=== PATIENT | male | born 2000 | race Two or more races ===

== ENCOUNTER → 2023-07-24 09:19 | Outpatient (BNVA) | payer SELFPAY | PROVIDERS: Visit Provider Physician Assistant Medical ==

== ENCOUNTER 2023-11-01 10:33 | Emergency (ER) | payer OTHER, SELFPAY ==
--- NOTE | 2023-11-01 | ECG_ITS ---
Test Reason : ABD PAIN Blood Pressure : / mmHG Vent. Rate : 103 BPM Atrial Rate : 103 BPM P-R Int : 140 ms QRS Dur : 080 ms QT Int : 308 ms P-R-T Axes : 041 011 018 degrees QTc Int : 403 ms Sinus tachycardia Nonspecific T wave abnormality Abnormal ECG No previous ECGs available Referred By: Generic ED Physician Electronically Signed By:Omero Simon
[2023-11-01 10:59] VITALS: BP 133/79; PULSE 102; RESP 18; TEMP 37.2; O2SAT 97
--- NOTE | 2023-11-01 11:21 | ED.GENADULT ---
HPI - General Adult General Chief complaint: General Medical Stated complaint: bodyaches/dark urine Time Seen by Provider: 11/01/23 11:21 Source: patient, family and RN notes reviewed Mode of arrival: ambulatory Limitations: no limitations History of Present Illness ED Provider: Tonia Grossman PA-C HPI narrative: This is a 23-year-old Singaporean-speaking male who presents emergency department with multiple complaints. Patient reports that has a variety of symptoms over the last week. He states that he has had sore throat, intermittent subjective fevers, fatigue, body aches, headaches, chills, nausea, low back pain, and and 1 episode of vomiting yesterday vomiting. He has been to [facility] and [facility] for these symptoms was discharged without any results of his workup. Patient reports that he has had decreased appetite over the last several days secondary to his pain and symptoms. He denies any sick contacts. He reports that he does not spend any time outdoors. No recent tick bites. He does not have any animals. He does report he had walked through a field several weeks ago however denies that this was tall grass, and states that it was a quick walk through field. No chest pain or shortness of breath. No rashes. No other complaints or concerns at this time. MD complaint: Multiple complaints Onset (ago): week(s) Radiation: non-radiation Severity: moderate Exacerbating factors: none Associated symptoms: denies other symptoms Treatments prior to arrival: none Related Data Previous Rx's ?Medication ?Instructions ?Recorded doxycycline hyclate 100 mg capsule 100 mg PO BID #14 caps 11/01/23 Allergies Allergy/AdvReac Type Severity Reaction Status Date / Time No Known Allergies Allergy Verified 11/01/23 11:09 Review of Systems Review of Systems: Yes all other systems are reviewed and are negative Constitutional: Constitutional: Reports as per [facility] Social History Social History Advance Directives: No Advance Directives Information Provided: Yes Do you have a plan to hurt others: No Plan Physical Exam ED Vital Signs: Vital Signs - 24 hr 11/01/23 10:59 11/01/23 12:29 11/01/23 14:39 Temperature 98.9 F 98.3 F 98.1 F Pulse Rate 102 H 94 96 Respiratory Rate 18 16 16 Blood Pressure 133/79 121/76 115/61 Pulse Oximetry 97 99 99 Oxygen Delivery Method Room Air Room Air Room Air 11/01/23 17:31 Temperature 100.1 F Pulse Rate 100 Respiratory Rate 16 Blood Pressure 128/86 Pulse Oximetry 99 Oxygen Delivery Method Room Air BMI result Body Mass Index 30.0 Const General: cooperative, comfortable and no acute distress Orientation/consciousness: patient oriented x3 Limitations: no limitations [facility] Head: Yes normal to inspection, Yes normocephalic and Yes atraumatic Ears: hearing grossly normal bilaterally General nose exam: Normal external nose present Face and sinus: Yes normal facial exam Mouth: Normal oral and palatal mucosa present, oropharynx normal and moist mucous membranes Throat: Yes posterior oropharynx normal Eyes General: appearance normal, both eyes and all related structures Eyelids: Yes eyelids normal Conjunctivae: conjunctivae normal Sclerae: sclerae normal Pupils: Equal, round and reactive pupils present EOM: EOMs intact bilaterally Neck Neck: Yes normal visual inspection, Yes full ROM and Yes no lymphadenopathy Lymphatic: no lymphadenopathy noted Chest Chest palpation & inspection: normal inspection of the chest Resp Effort & Inspection: normal respiratory effort and able to speak in complete sentences Auscultation: clear to auscultation bilaterally, no crackles, no rales, no rhonchi and no wheezes Cardio Rate: regular rate Rhythm: regular rhythm Heart sounds: S1 normal heart sound present and S2 normal heart sound present GI Other: Abdomen is soft, nontender Inspection: Yes normal to inspection Skin General skin exam: no rashes or lesions noted Trauma: no lacerations or abrasions Wounds: no wounds Neuro General: patient oriented x3 and moves all extremities Cranial nerves: Yes Equal, round and reactive pupils present Extrem General: Yes normal to inspection Right upper extremity: normal to inspection Left upper extremity: normal to inspection Right lower extremity: normal to inspection Left lower extremity: normal to inspection Course Reevaluation(s) Reevaluation #1: [facility] [facility] screen is negative. Patient has leukopenia with left shift including atypical lymphocytes, with low platelets, elevated liver enzymes, and elevated alk phos. I discussed this workup with my attending physician, Dr. López. Recommends calling down to the laboratory asking if the blood smear showed any evidence of babesia and to inquire in regards to risk factors for tick-borne illnesses. Will draw for tick-borne illnesses. Called down to the lab, they report no significant evidence of Babesia on the smear will obtain tick-borne panel for further evaluation. Patient remains to be comfortable, resting in the room, under no distress. Time: 14:57 Reevaluation #2: He continues to be comfortable, he has no factors that would lead him to be more prone to tick-borne illnesses. He states that he takes care of his son aldo, does not spend time outdoors. He does not have any animals. I discussed this again with my attending physician, he recommends reaching out to Dr. Guillen for input. Message sent to specialist Time: 15:45 Reevaluation #3: I discussed case with Dr. Guillen, who recommends having repeat labs performed in 1 week. I discussed overall workup with patient, he has a primary care physician who he can follow-up with. At this point, we are treating for ehrlichiosis with 10 day course of doxycycline. Discussed strict return precautions. He is eating and drinking and well-appearing. At this time I feel comfortable with discharge with the agreement that he will return with any new or worsening symptoms. He understands and agrees with plan. Patient stable for discharge. Medical Decision Making Medical Decision Making [facility] Narrative: This is a 23-year-old male who presents emergency department with multiple complaints. On arrival, vital signs within normal limits. He is nontoxic appearing. Abdomen is soft and nontender. He has had various symptoms over the course of this last week and has been seen at [facility] and [facility] for his symptoms without any answers. Given range of symptoms, will obtain labs, mono screen. Differential diagnoses include mono, tick-borne illness, viral syndrome. He is well-appearing. Plan: Labs, mono, viral swabs Differential Diagnosis Differential Diagnoses: The differential diagnosis associated with the presentation includes See above Admission/Observation Consideration of admission/observation: Escalation of care including admission/observation considered Consult Healthcare Provider Management of the patient was discussed with: Varnish Maker Helper Dr. Guillen Lab Data [facility] Lab Attestation statement: I reviewed the patient's lab results. Patient has leukopenia at 4.4, with low neutrophils, band neutrophils at 6%, elevated lymphocytes and atypical lymphocytes. He also has slight decrease in platelet estimate, with smudge cells, and polychromasia he has elevated AST and ALT as well as alk phos 11/01/23 11:21 11/01/23 11:21 Labs: Lab Results 11/01/23 11/01/23 11/01/23 Range/Units 11:21 11:44 13:30 WBC 4.4 L (4.8-10.8) X10*3/uL RBC 4.94 (4.60-5.80) X10*6/uL Hgb 14.1 (14.0-18.0) g/dl Hct 40.7 L (42.0-52.0) % MCV 82.4 (80.0-98.0) fL MCH 28.5 (27.0-33.0) pg MCHC 34.6 (31.0-36.0) g/dl RDW 12.6 (11.0-16.0) % Plt Count 151 L (160-400) X10*3/uL MPV 9.9 (9.4-12.4) fL Immature Gran % (Auto) Cancelled Neut % (Auto) Cancelled Lymph % (Auto) Cancelled [place] % (Auto) Cancelled Eos % (Auto) Cancelled Baso % (Auto) Cancelled Lymph # (Auto) Cancelled [place] # (Auto) Cancelled Eos # (Auto) Cancelled Baso # (Auto) Cancelled Abs Immat Gran (auto) Cancelled Absolute Neuts (auto) Cancelled Absolute Nucleated RBC 0.000 (0.0-0.012) X10*3/uL Nucleated RBC % (auto) 0.0 (0.0-0.2) /100WBC Neutrophils % (Manual) 15 L (45-73) % Band Neutrophils % 6 H (3-5) % Lymphocytes % (Manual) 62 H (20-40) % Atypical Lymphs % (Man) 10 H (0-6) % Monocytes % (Manual) 6 (2-11) % Basophils % (Manual) 1 (0-2) % Abs Neuts (Manual) 0.9 L (2.0-8.3) X10*3/uL Lymphocytes # (Manual) 2.7 (1.2-4.9) X10*3/uL Atyp Lymphs # (Manual) 0.4 x10*3/uL Monocytes # (Manual) 0.3 (0.1-1.2) X10*3/uL Smudge Cells PRESENT Platelet Estimate SLIGHTLY DECREASED (NORMAL) Plt Morphology Comment NORMAL RBC Morphology NOTED Polychromasia 1+ (0-2) /OIF Sodium 136 (135-145) mmol/L Potassium 4.3 (3.3-5.1) mmol/L Chloride 104 (96-108) mmol/L Carbon Dioxide 25 (22-29) mmol/L Anion Gap 11 L (12-20) BUN 9 (9-16) mg/dL Creatinine 1.00 (0.5-1.4) mg/dL Estim Creat Clear Calc 139.1 Estimated GFR > 60 Random Glucose 94 (60-115) mg/dL Calcium 8.8 (8.4-10.2) mg/dL Total Bilirubin 0.8 (0.0-1.0) mg/dL Direct Bilirubin 0.4 (0.0-0.5) mg/dL AST 143 H (5-37) U/L ALT 268 H (0-40) U/L Alkaline Phosphatase 139 H (39-117) U/L Total Protein 7.3 (6.5-8.0) g/dL Albumin 4.0 (3.5-5.0) g/dL Lipase 30 (8-78) U/L Urine Color Dark Yellow Urine Appearance Clear Urine pH 5.5 (5.0-9.0) Ur Specific [place] 1.020 (1.005-1.025) Urine Protein Trace (Neg-Trace) mg/dL Urine Glucose (UA) Negative (Negative) mg/dL Urine Ketones Trace (Negative) mg/dL Urine Blood Negative (Negative) Urine Nitrite Negative (Negative) Ur Leukocyte Esterase Negative (Negative) Urine RBC 0-2 (0-2) /HPF Urine WBC 0-5 (0-5) /HPF Ur Squamous Epith Cells 0-2 (0-2) /HPF Urine Bacteria None Seen (None Seen) Hyaline Casts 0-2 (0-2) /LPF COVID-19 (VU) Negative (Negative) COVID-19 Clin Com See Note Monoscreen Negative (Negative) Influenza Type A (SIOBHAN) Negative (Negative) Influenza Type B (SIOBHAN) Negative (Negative) Influenza A & B Note See Note S. pyogenes GrpA SIOBHAN (Negative) 11/01/23 Range/Units 14:36 WBC (4.8-10.8) X10*3/uL RBC (4.60-5.80) X10*6/uL Hgb (14.0-18.0) g/dl Hct (42.0-52.0) % MCV (80.0-98.0) fL MCH (27.0-33.0) pg MCHC (31.0-36.0) g/dl RDW (11.0-16.0) % Plt Count (160-400) X10*3/uL MPV (9.4-12.4) fL Immature Gran % (Auto) Neut % (Auto) Lymph % (Auto) [place] % (Auto) Eos % (Auto) Baso % (Auto) Lymph # (Auto) [place] # (Auto) Eos # (Auto) Baso # (Auto) Abs Immat Gran (auto) Absolute Neuts (auto) Absolute Nucleated RBC (0.0-0.012) X10*3/uL Nucleated RBC % (auto) (0.0-0.2) /100WBC Neutrophils % (Manual) (45-73) % Band Neutrophils % (3-5) % Lymphocytes % (Manual) (20-40) % Atypical Lymphs % (Man) (0-6) % Monocytes % (Manual) (2-11) % Basophils % (Manual) (0-2) % Abs Neuts (Manual) (2.0-8.3) X10*3/uL Lymphocytes # (Manual) (1.2-4.9) X10*3/uL Atyp Lymphs # (Manual) x10*3/uL Monocytes # (Manual) (0.1-1.2) X10*3/uL Smudge Cells Platelet Estimate (NORMAL) Plt Morphology Comment RBC Morphology Polychromasia /OIF Sodium (135-145) mmol/L Potassium (3.3-5.1) mmol/L Chloride (96-108) mmol/L Carbon Dioxide (22-29) mmol/L Anion Gap (12-20) BUN (9-16) mg/dL Creatinine (0.5-1.4) mg/dL Estim Creat Clear Calc Estimated GFR Random Glucose (60-115) mg/dL Calcium (8.4-10.2) mg/dL Total Bilirubin (0.0-1.0) mg/dL Direct Bilirubin (0.0-0.5) mg/dL AST (5-37) U/L ALT (0-40) U/L Alkaline Phosphatase (39-117) U/L Total Protein (6.5-8.0) g/dL Albumin (3.5-5.0) g/dL Lipase (8-78) U/L Urine Color Urine Appearance Urine pH (5.0-9.0) Ur Specific [place] (1.005-1.025) Urine Protein (Neg-Trace) mg/dL Urine Glucose (UA) (Negative) mg/dL Urine Ketones (Negative) mg/dL Urine Blood (Negative) Urine Nitrite (Negative) Ur Leukocyte Esterase (Negative) Urine RBC (0-2) /HPF Urine WBC (0-5) /HPF Ur Squamous Epith Cells (0-2) /HPF Urine Bacteria (None Seen) Hyaline Casts (0-2) /LPF COVID-19 (VU) (Negative) COVID-19 Clin Com Monoscreen (Negative) Influenza Type A (SIOBHAN) (Negative) Influenza Type B (SIOBHAN) (Negative) Influenza A & B Note S. pyogenes GrpA SIOBHAN Negative (Negative) Radiology Impression Discussion of test interpretation with radiology: I have reviewed the radiologist's reading. External Record Review External record reviewed: Inpatient record, Office record, Outpatient record, Prior outpatient labs, Prior outpatient radiology, Primary care record and Outside ED record Discharge Plan Discharge Clinical Impression: Viral illness Patient Disposition: Home, Self-Care Instructions: Viral Syndrome (ED) Additional Instructions: You were seen in the emergency department today. You had abnormal blood work, please have this repeated in 1 week. Call your primary care physician on friday. You may have a virus from a tick that is causing you to have the symptoms. Please take prescribed antibiotic as directed, finish the entire course even if your feeling better. Please be advised that this can cause stomach upset, you may take Zofran as needed for nausea. If any new or worsening symptoms occur including but not limited to chest pain, dizziness, severe abdominal pain, please immediately seek emergent care. Your lab testing for tick-borne illnesses does take several days, we will not have the results for several days. We will call you if these are positive. Prescriptions: New doxycycline hyclate 100 mg capsule 100 mg PO BID Qty: 14 0RF Interventions: ED Discharge Assessment Last Done: 11/01/23 17:31 Discharge Date/Time: 11/01/23 17:32 Print Language: Singaporean
[2023-11-01 11:38] LABS: Hematocrit 40.7 % (42.0-52.0); Hemoglobin 14.1 g/dl (14.0-18.0); Mean Corpuscular HGB Conc 34.6 g/dl (31.0-36.0); Mean Corpuscular Hemoglobin 28.5 pg (27.0-33.0); Mean Corpuscular Volume 82.4 fL (80.0-98.0); Mean Platelet Volume 9.9 fL (9.4-12.4); Platelet Count 151 X10*3/uL (160-400); Red Blood Count 4.94 X10*6/uL (4.60-5.80); Red Cell Distribution Width 12.6 % (11.0-16.0); White Blood Count 4.4 X10*3/uL (4.8-10.8)
[2023-11-01 11:43] LABS: Alanine Aminotransferase 268 U/L (0-40); Alkaline Phosphatase 139 U/L (39-117); Anion Gap 11 (12-20); Aspartate Amino Transferase 143 U/L (5-37); Bilirubin Direct 0.4 mg/dL (0.0-0.5); Bilirubin Total 0.8 mg/dL (0.0-1.0); Blood Urea Nitrogen 9 mg/dL (9-16); Calcium 8.8 mg/dL (8.4-10.2); Carbon Dioxide 25 mmol/L (22-29); Chloride 104 mmol/L (96-108); Creatinine Clr Calc Pharmacy 139.1; Estimated Glomerular Filt Rate > 60; Glucose Random 94 mg/dL (60-115); Lipase 30 U/L (8-78); Potassium 4.3 mmol/L (3.3-5.1); Sodium 136 mmol/L (135-145); Total Protein 7.3 g/dL (6.5-8.0)
[2023-11-01 11:49] LABS: Appearance Urine Clear; Color Urine Dark Yellow; Glucose Urine UA Negative (Negative); Leukocyte Esterase Urine Negative (Negative); Nitrite Urine Negative (Negative); PH 5.5 (5.0-9.0); Urine Blood Negative (Negative); Urine Ketones Trace mg/dL (Negative); Urine Protein Trace mg/dL (Neg-Trace)
[2023-11-01 11:54] LABS: Bacteria Urine None Seen (None Seen); Hyaline Casts Urine 0-2 /LPF (0-2); RBC Urine 0-2 /HPF (0-2); Squamous Epithelial Cell Urine 0-2 /HPF (0-2); WBC Urine 0-5 /HPF (0-5)
[2023-11-01 12:17] LABS: COVID-19 Test Negative (Negative); IDNOW Serial# 08D9AD1C; IDNOW Serial# 152EDE1D; Influenza A Negative (Negative); Influenza B2 Negative (Negative)
[2023-11-01 12:29] VITALS: BP 121/76; PULSE 94; RESP 16; TEMP 36.8; O2SAT 99
[2023-11-01 12:41] LABS: Atypical Lymph Absolute Manual 0.4 x10*3/uL; Atypical Lymphs Percent Manual 10 % (0-6); Band Neutrophils Percent 6 % (3-5); Basophils Percent Manual 1 % (0-2); Lymphocytes Absolute Manual 2.7 X10*3/uL (1.2-4.9); Lymphocytes Percent Manual 62 % (20-40); Monocytes Absolute Manual 0.3 X10*3/uL (0.1-1.2); Monocytes Percent Manual 6 % (2-11); Neutrophils Absolute Manual 0.9 X10*3/uL (2.0-8.3); Neutrophils Percent Manual 15 % (45-73)
[2023-11-01 12:43] LABS: Platelet Estimate SLIGHTLY DECREASED (NORMAL); Platelet Morphology Comment NORMAL; Polychromasia 1+ (0-2) /OIF; RBC Morphology NOTED; Smudge Cells PRESENT
[2023-11-01 14:04] LABS: Monotest Negative (Negative)
[2023-11-01 14:39] VITALS: BP 115/61; PULSE 96; RESP 16; TEMP 36.7; O2SAT 99
[2023-11-01 15:18] LABS: IDNOW Serial# 58CA691E; Strep A Nucleic Acid Negative (Negative)
[2023-11-01 17:31] VITALS: BP 128/86; PULSE 100; RESP 16; TEMP 37.8; O2SAT 99
[2023-11-03 22:44] LABS: Lyme Abs Screen <0.90 index
[2023-11-10 09:57] LABS: A. Phagocytophilum Ab IgG <1:64 (<1:64); A. Phagocytophilum Ab IgM <1:20 (<1:20); E. Chaffeensis Ab IgG <1:64 (<1:64); E. Chaffeensis Ab IgM <1:20 (<1:20)
[2023-11-12 05:13] LABS: Babesia IgG <1:64 titer (<1:64)
== END 2023-11-01 17:32 | disposition home or self-care (01) ==
PROVIDERS: Physician Assistant Medical; Emergency Provider Emergency Medicine Emergency Medical Services
DX: B34.9 Viral infection, unspecified (principal); J02.9 Acute pharyngitis, unspecified; R51.9 Headache, unspecified; Z03.818 Encounter for observation for suspected exposure to other biological agents ruled out
CPT/HCPCS: 36415; 80048; 80076; 81001; 83690; 85007; 85025; 85027; 86308; 86617; 86618; 86666; 86753; 87502; 87635; 87651; 93005; 99284

== ENCOUNTER → 2023-11-01 11:24 | Outpatient (BNV) | payer OTHER, SELFPAY | PROVIDERS: Emergency Provider Emergency Medicine Emergency Medical Services; Visit Provider Internal Medicine Cardiovascular Disease | DX: R00.0 Tachycardia, unspecified (principal); R94.31 Abnormal electrocardiogram [ECG] [EKG]; R10.9 Unspecified abdominal pain | CPT/HCPCS: 93010 ==

== ENCOUNTER 2023-11-03 20:04 | Inpatient (IN) | payer OTHER, SELFPAY ==
--- NOTE | ~2023-11-03 | US_ITS ---
EXAMINATION: US ABDOMEN LIMITED CLINICAL INFORMATION: Abnormal LFTs. Epigastric and right flank pain, vomiting with eating. COMPARISON: None available. TECHNIQUE: Real-time imaging of the right upper quadrant abdominal viscera. FINDINGS: PANCREAS: Not well seen due to shadowing from overlying bowel gas. LIVER: The liver is normal in size. The liver contour is normal. Parenchymal echogenicity is normal. No focal hepatic lesion. There is no intrahepatic biliary duct dilatation seen. GALLBLADDER: Negative Manrique's sign. The gallbladder is physiologically distended without evidence of stones, sludge, polyps, wall thickening or pericholecystic fluid. COMMON BILE DUCT: Normal in caliber measuring 0.2 cm in diameter. RIGHT KIDNEY: No hydronephrosis. No renal calculi or focal parenchymal lesions. The kidney measures 10.2 cm in maximum dimension. FREE FLUID: None. US/US abdomen limited IMPRESSION: No acute sonographic abnormalities to explain the patient's symptoms.
--- NOTE | ~2023-11-03 | CT_ITS ---
EXAMINATION: CT ABDOMEN AND PELVIS WITH CONTRAST CLINICAL INFORMATION: Right flank pain. COMPARISON: None available. TECHNIQUE: Multidetector volumetric images were obtained from the superior aspect of the liver through the pubic symphysis following administration 85 mL of Omnipaque 350 intravenous contrast. Sagittal and coronal reformatted images were obtained on the technologist's workstation. Oral contrast: No This CT examination was performed using dose optimization techniques as appropriate, variously including the following: *Automated exposure control *Adjustment of mA and/or kV according to patient size (this includes techniques or standardized protocols for targeted exams where dose is matched to indication/reason for exam; i.e. extremities or head) *Use of iterative reconstruction technique DLP: 710 mGy-cm FINDINGS: LUNG BASES: The visualized lung bases are unremarkable. LIVER, GALLBLADDER, AND BILIARY TREE: A small hepatic calcification is noted near the dome of the right lobe of the liver. There is no intrahepatic biliary duct dilatation. The gallbladder is unremarkable with no evidence of radiopaque gallstones, gallbladder wall thickening, or obvious pericholecystic inflammatory changes. PANCREAS: Unremarkable. SPLEEN: Spleen is enlarged measuring up to 16 cm. ADRENAL GLANDS: Unremarkable. KIDNEYS AND URETERS: The kidneys are normal in size, shape, and attenuation. No hydronephrosis, hydroureter, or calculi seen. No perinephric stranding. BLADDER: Unremarkable. GASTROINTESTINAL TRACT: There are fluid-filled mid small bowel. The appendix is unremarkable. ABDOMINAL WALL: No significant hernia is appreciated. LYMPH NODES: Normal. VASCULAR: Unremarkable. PELVIC VISCERA: Pelvic viscera are unremarkable. There is a small amount of free fluid within the pelvis. OSSEOUS STRUCTURES: Unremarkable. CT/CT abdomen pelvis w IV con IMPRESSION: 1. Splenomegaly. 2. Fluid-filled mid small bowel, which may be related to a mild enteritis. Small amount of free fluid within the pelvis. 3. No evidence of renal calculi or hydronephrosis. Fleischner guidelines were followed.
--- NOTE | ~2023-11-03 | XR_ITS ---
EXAMINATION: XR CHEST CLINICAL INFORMATION: Fevers. COMPARISON: None available. TECHNIQUE: Frontal view of the chest was obtained. FINDINGS: No significant abnormality is noted involving the heart, lungs, mediastinum, bony thorax or soft tissues. XR/XR chest 1V IMPRESSION: Unremarkable examination.
[2023-11-03 20:07] VITALS: BP 112/74; PULSE 105; RESP 18; TEMP 37; O2SAT 98
--- NOTE | 2023-11-03 20:12 | ED_ITS ---
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 He denies heavy tylenol use, ETOH, IVDA, foraging for mushrooms, sick contacts, tick bites. He notes he has never had this before or felt like this. He was seen here on 10/31 and sent home on doxy - viral panel and mono negative, strep negative tick panel sent off. He cannot keep doxy down. He does not feel better. MD complaint: abdominal pain n/v. Onset (ago): day(s) (4+) Location: head, back and abdomen Radiation: non-radiation Severity: moderate Quality: aching Pain Consistency: constant Relieving factors: none Exacerbating factors: eating Associated symptoms: fever/chills, headaches, loss of appetite, malaise and nausea/vomiting Treatments prior to arrival: NSAID and other (vomited up doxy) Related Data Previous Rx's ?Medication ?Instructions ?Recorded doxycycline hyclate 100 mg capsule 100 mg PO BID #14 caps 11/01/23 Allergies Allergy/AdvReac Type Severity Reaction Status Date / Time No Known Allergies Allergy Verified 11/03/23 20:12 Review of Systems 2 Review of Systems: Constitutional : No Weight loss, No Fever, pos Chills ENT/Mouth : No sore throat, No Rhinorrhea Eyes: No Swelling, No Redness Cardiovascular : No Chest Pain, No SOB, NoEdema Respiratory : No Cough, No Sputum, No Wheezing Gastrointestinal : Positive Nausea, Positive Vomiting, no Diarrhea, positive abdominal Pain, No Hematochezia, No Melena Genitourinary : No Dysuria, No Urinary Frequency, No Hematuria, No Urgency Musculoskeletal : pos joint pain, pos Myalgias, No Joint Swelling Skin : No Skin Lesions, No rash Neuro : pos Weakness, No Numbness, No Dizziness, No Headache Psych : No Anxiety/Panic, No Depression All other systems reviewed and are negative. [facility] Past Medical History Attestation statement: The following information was validated with the patient. Source: old records reviewed Medical History No pertinent past medical history Social History Social History (Updated 11/04/23 @ 00:29 by Rylie Bird DO) Alcohol intake: never Patient Tobacco Use Status: Never used Tobacco Use of substances other than those prescribed or required for medical reasons: No Advance Directives: No Advance Directives Information Provided: No Do you have a plan to hurt others: No Plan Physical Exam ED Vital Signs: Vital Signs - 24 hr 11/03/23 20:07 11/04/23 00:24 Temperature 98.6 F 98.1 F Pulse Rate 105 H 105 H Respiratory Rate 18 17 Blood Pressure 112/74 103/62 Pulse Oximetry 98 100 Oxygen Delivery Method Room Air Room Air BMI result Body Mass Index 30.0 Appearance: Alert. Oriented X3. No acute distress. Eyes: Pupils equal, round and reactive to light. ENT: Pharynx dry MM Neck: Normal inspection. Neck supple. CVS: Normal heart rate and rhythm. Pulses normal. Respiratory: No respiratory distress. Breath sounds normal. Abdomen: Soft and moderate ttp in epigastric area no rebound or guarding, R CVA ttp Skin: Skin warm and dry. pale skin color. Normal skin turgor. Extremities: No lower extremity edema. No calf ttp Neuro: Oriented X 3. No motor deficit. No sensory deficit. Course Course Course Narrative: RME performed by Jonelle Reno PA-C. Patient is a 23 year old assigned male at presenting to the emergency department with nausea, vomiting, and feeling generally unwell. Detailed physical exam and review of systems are deferred to the senior hydrogeologist. Labs and swabs ordered. Patient placed back in the waiting room pending room availability and results. Medications Administered Discontinued Medications Generic Name Dose Route Start Last Admin Trade Name Freq PRN Reason Stop Dose Admin Diphenhydramine HCl 25 mg 11/03/23 22:48 11/03/23 23:43 Diphenhydramine Hcl 50 Mg/Ml Vial IVPUSH 11/03/23 22:49 25 mg ONCE ONE Administration Sodium Chloride 1,000 mls @ 999 mls/hr 11/03/23 22:48 11/03/23 23:44 Ns IV 11/03/23 23:48 999 mls/hr .Q1H1M ONE Administration Piperacillin Sod/Tazobactam 50 mls @ 100 mls/hr 11/03/23 22:48 11/03/23 23:43 Sod 3.375 gm/ Sodium Chloride IV 11/03/23 23:17 100 mls/hr ONCE ONE Administration Iohexol 85 ml 11/04/23 00:16 11/04/23 00:16 Iohexol 350 Mg/Ml 100 Ml Infus..Btl IV 11/04/23 00:17 85 ml ONCE ONE Administration Metoclopramide HCl 10 mg 11/03/23 22:48 11/03/23 23:43 Metoclopramide Hcl 10 Mg/2 Ml Vial IVPUSH 11/03/23 22:49 10 mg ONCE ONE Administration Morphine Sulfate 4 mg 11/03/23 22:48 11/03/23 23:43 Morphine Sulfate 4 Mg/Ml Cartridge IVPUSH 11/03/23 22:49 4 mg ONCE ONE Administration Protocol Medical Decision Making Medical Decision Making MDM Narrative: 23 yo male with no sig PMH here with c/o persistent n/v chills sweats abdominal pain - no risk factors that we could gather to cause elevation in LFTs - hepatitis panel sent off, US and CT scan ordered, given bandemia I am going to start him on zosyn as well. Differential Diagnosis Differential Diagnoses: The differential diagnosis associated with the presentation includes viral syndrome, hepatitis Admission/Observation Consideration of admission/observation: Escalation of care including admission/observation considered admit given elevated LFTs and bandemia Consult Healthcare Provider Management of the patient was discussed with: Hospitalist (will admit) Lab Data [facility] Lab Attestation statement: I reviewed the patient's lab results. 11/03/23 20:47 11/03/23 20:47 Labs: Lab Results 11/03/23 11/03/23 11/03/23 Range/Units 20:47 20:48 23:06 WBC 5.4 (4.8-10.8) X10*3/uL RBC 4.94 (4.60-5.80) X10*6/uL Hgb 14.0 (14.0-18.0) g/dl Hct 40.4 L (42.0-52.0) % MCV 81.8 (80.0-98.0) fL MCH 28.3 (27.0-33.0) pg MCHC 34.7 (31.0-36.0) g/dl RDW 12.7 (11.0-16.0) % Plt Count 137 L (160-400) X10*3/uL MPV 10.2 (9.4-12.4) fL Immature Gran % (Auto) Cancelled Neut % (Auto) Cancelled Lymph % (Auto) Cancelled [place] % (Auto) Cancelled Eos % (Auto) Cancelled Baso % (Auto) Cancelled Lymph # (Auto) Cancelled [place] # (Auto) Cancelled Eos # (Auto) Cancelled Baso # (Auto) Cancelled Abs Immat Gran (auto) Cancelled Absolute Neuts (auto) Cancelled Absolute Nucleated RBC 0.000 (0.0-0.012) X10*3/uL Nucleated RBC % (auto) 0.0 (0.0-0.2) /100WBC Neutrophils % (Manual) 11 L (45-73) % Band Neutrophils % 14 H (3-5) % Lymphocytes % (Manual) 60 H (20-40) % Atypical Lymphs % (Man) 9 H (0-6) % Monocytes % (Manual) 6 (2-11) % Abs Neuts (Manual) 1.4 L (2.0-8.3) X10*3/uL Lymphocytes # (Manual) 3.2 (1.2-4.9) X10*3/uL Atyp Lymphs # (Manual) 0.5 x10*3/uL Monocytes # (Manual) 0.3 (0.1-1.2) X10*3/uL Smudge Cells PRESENT Platelet Estimate SLIGHTLY DECREASED (NORMAL) Plt Morphology Comment NORMAL RBC Morphology NORMAL Sodium 138 (135-145) mmol/L Potassium 4.2 (3.3-5.1) mmol/L Chloride 105 (96-108) mmol/L Carbon Dioxide 25 (22-29) mmol/L Anion Gap 12 (12-20) BUN 10 (9-16) mg/dL Creatinine 1.01 (0.5-1.4) mg/dL Estim Creat Clear Calc 137.7 Estimated GFR > 60 Random Glucose 88 (60-115) mg/dL Lactic Acid 1.1 (0.5-2.0) mmol/L Calcium 9.8 D (8.4-10.2) mg/dL Magnesium 2.3 (1.6-2.6) mg/dL Total Bilirubin 1.6 H (0.0-1.0) mg/dL AST 447 H (5-37) U/L ALT 585 H (0-40) U/L Alkaline Phosphatase 252 H (39-117) U/L Total Protein 7.7 (6.5-8.0) g/dL Albumin 4.1 (3.5-5.0) g/dL Lipase 58 (8-78) U/L Influenza Type A (PCR) NEGATIVE (Negative) Influenza Type B (PCR) NEGATIVE (Negative) RSV RNA Qual (PCR) NEGATIVE (Negative) SARS-CoV-2 RNA (RT-PCR) NEGATIVE (Negative) S. pyogenes GrpA SIOBHAN Negative (Negative) Independent Interpretation I performed an independent interpretation of an: Plain X-Ray (no pneumonia), Ultrasound (normal ) and CT Scan (no acute infection) Radiology Impression Discussion of test interpretation with radiology: I have reviewed the radiologist's reading. External Record Review External record reviewed: Inpatient record and Prior outpatient labs Discharge Plan Discharge Clinical Impression: Transaminitis, Bandemia Nausea & vomiting Qualifiers: Vomiting type: bilious vomiting Qualified Code(s): R11.14 - Bilious vomiting Patient Disposition: Admitted As Inpatient Print Language: Bahamian
[2023-11-03 21:02] LABS: Hematocrit 40.4 % (42.0-52.0); Mean Corpuscular HGB Conc 34.7 g/dl (31.0-36.0); Mean Corpuscular Hemoglobin 28.3 pg (27.0-33.0); Mean Corpuscular Volume 81.8 fL (80.0-98.0); Mean Platelet Volume 10.2 fL (9.4-12.4); Platelet Count 137 X10*3/uL (160-400); Red Blood Count 4.94 X10*6/uL (4.60-5.80); Red Cell Distribution Width 12.7 % (11.0-16.0); White Blood Count 5.4 X10*3/uL (4.8-10.8)
[2023-11-03 21:09] LABS: Alanine Aminotransferase 585 U/L (0-40); Albumin Level 4.1 g/dL (3.5-5.0); Alkaline Phosphatase 252 U/L (39-117); Anion Gap 12 (12-20); Aspartate Amino Transferase 447 U/L (5-37); Bilirubin Total 1.6 mg/dL (0.0-1.0); Blood Urea Nitrogen 10 mg/dL (9-16); Calcium 9.8 mg/dL (8.4-10.2); Carbon Dioxide 25 mmol/L (22-29); Chloride 105 mmol/L (96-108); Creatinine Clr Calc Pharmacy 137.7; Estimated Glomerular Filt Rate > 60; Glucose Random 88 mg/dL (60-115); Magnesium 2.3 mg/dL (1.6-2.6); Potassium 4.2 mmol/L (3.3-5.1); Sodium 138 mmol/L (135-145); Total Protein 7.7 g/dL (6.5-8.0)
[2023-11-03 21:14] LABS: IDNOW Serial# 08D9AD1C; Strep A Nucleic Acid Negative (Negative)
[2023-11-03 21:34] LABS: Influenza A PCR NEGATIVE (Negative); Influenza B PCR NEGATIVE (Negative); Resp Syncy Virus RNA Qual PCR NEGATIVE (Negative); SARS COV2 PCR INHOUSE NEGATIVE (Negative)
[2023-11-03 21:47] LABS: Neutrophils Percent Manual 11 % (45-73)
[2023-11-03 21:48] LABS: Atypical Lymph Absolute Manual 0.5 x10*3/uL; Atypical Lymphs Percent Manual 9 % (0-6); Band Neutrophils Percent 14 % (3-5); Lymphocytes Absolute Manual 3.2 X10*3/uL (1.2-4.9); Lymphocytes Percent Manual 60 % (20-40); Monocytes Absolute Manual 0.3 X10*3/uL (0.1-1.2); Monocytes Percent Manual 6 % (2-11); Neutrophils Absolute Manual 1.4 X10*3/uL (2.0-8.3)
[2023-11-03 21:49] LABS: Platelet Estimate SLIGHTLY DECREASED (NORMAL); Platelet Morphology Comment NORMAL; RBC Morphology NORMAL
[2023-11-03 21:50] LABS: Smudge Cells PRESENT
[2023-11-03 23:23] LABS: Lactic Acid 1.1 mmol/L (0.5-2.0)
[2023-11-03] MEDS: diphenhydrAMINE HCL 50 MG/ML VIAL 25 MG IVPUSH (23:43)
[2023-11-03] MEDS: Metoclopramide HCl 10 MG/2 ML VIAL IVPUSH (23:43)
[2023-11-03] MEDS: Piperacillin Sodium/Tazobactam 3.375 GM in 0.9 % Sodium Chloride 50 ML IV (23:43)
[2023-11-03] MEDS: Morphine Sulfate 4 MG/ML CARTRIDGE IVPUSH (23:43)
[2023-11-03] MEDS: 0.9 % Sodium Chloride 1,000 ML 999 ML IV (23:44)
[2023-11-04] VITALS (8 sets, daily range): BP systolic 99–117; BP diastolic 58–70; PULSE 65–105; RESP 12–18; TEMP 36.6–37.7; O2SAT 96–100; BMI 29.7
[2023-11-04 00:02] LABS: Lipase 58 U/L (8-78)
[2023-11-04] MEDS: iohexoL 350 MG/ML 100 ML INFUS..BTL 85 ML IV (00:16)
[2023-11-04 01:42] LABS: Acetaminophen LAB < 3 mcg/mL (<30)
[2023-11-04 01:42] LABS: Ethanol < 10 mg/dL
--- NOTE | 2023-11-04 02:11 | P.HPHOSP_ITS ---
History of Present Illness Date of Service: 11/04/23 Chief Complaint: Nausea/vomiting This is a 23-year-old male with no pertinent past medical history and not on prescription medications who presents to the emergency department for evaluation of nausea and vomiting. Patient states symptoms started 4 days ago. He was seen in the ER on 10/31 and discharged home on p.o. doxycycline. Patient states he is unable to tolerate p.o. intake due to nausea and vomiting. Also had 1 episode of loose stools on the day of presentation. Patient is complaining of epigastric discomfort, intermittent, nonradiating. Multiple episodes of vomiting throughout the day and is nonbloody. States he has not left his home and has no history of travel. No hiking in no concern for tick bites. No sick contacts. Also has been having chills with body aches and generalized weakness. No IV drug use. Denies heavy alcohol use. No history of similar symptoms in the past. Is currently not on any prescription medications. In the emergency department, 14% bandemia present and liver enzymes found to be elevated. CT imaging of the abdomen with splenomegaly. Review of Systems 2 Constitutional: Constitutional: Reports chills, Reports fatigue, Reports lethargy, Reports malaise, Reports poor appetite and Reports weakness Cardiovascular: Cardiovascular: Reports no additional cardiovascular complaints Respiratory: Respiratory: Reports no additional respiratory complaints Gastrointestinal: Gastrointestinal: Reports abdominal pain, Reports loose stools, Reports nausea and Reports vomiting Genitourinary: Genitourinary: Reports no additional male genitourinary complaints Neurologic: Reports weakness Endocrine: Endocrine: Reports fatigue [facility] Medical History No pertinent past medical history Pertinent family history: No family history of early CAD Social History Alcohol intake: never Patient Tobacco Use Status: Never used Tobacco Smoked in Last 30 Days: No Use of substances other than those prescribed or required for medical reasons: No Advance Directives: No Advance Directives Information Provided: No Do you have a plan to hurt others: No Plan Nutrition Risks: Acute nausea or vomiting x1 week and Poor intake 0-25% >4 days Meds Allergies Allergy/AdvReac Type Severity Reaction Status Date / Time No Known Allergies Allergy Verified 11/03/23 20:12 Physical Exam 2 Vital Signs and Narrative: Vital Signs: Last Vital Signs Temp 98.1 F 11/04/23 00:24 Pulse 105 H 11/04/23 00:24 Resp 17 11/04/23 00:24 BP 103/62 11/04/23 00:24 Pulse Ox 100 11/04/23 00:24 O2 Del Method Room Air 11/04/23 00:24 BMI result Body Mass Index 30.0 Middle-aged male lying in bed in no distress Neck supple, no JVD Regular rate and rhythm, S1-S2 heard Regular breath sounds bilaterally, no wheezing or crackles appreciated Abdomen with no guarding, no rigidity Patient is awake, alert and oriented to self, place, time and person ; no focal motor deficit Psych: Normal mood No pedal edema Results Labs 11/03/23 20:47 11/03/23 20:47 Labs: Laboratory Results - last 24 hr 11/03/23 11/03/23 11/03/23 20:47 20:48 23:06 MCV 81.8 MCH 28.3 MCHC 34.7 RDW 12.7 Plt Count 137 L MPV 10.2 Immature Gran % (Auto) Cancelled Neut % (Auto) Cancelled Lymph % (Auto) Cancelled [place] % (Auto) Cancelled Eos % (Auto) Cancelled Baso % (Auto) Cancelled Lymph # (Auto) Cancelled [place] # (Auto) Cancelled Eos # (Auto) Cancelled Baso # (Auto) Cancelled Abs Immat Gran (auto) Cancelled Absolute Neuts (auto) Cancelled Absolute Nucleated RBC 0.000 Nucleated RBC % (auto) 0.0 Neutrophils % (Manual) 11 L Band Neutrophils % 14 H Lymphocytes % (Manual) 60 H Atypical Lymphs % (Man) 9 H Monocytes % (Manual) 6 Abs Neuts (Manual) 1.4 L Lymphocytes # (Manual) 3.2 Atyp Lymphs # (Manual) 0.5 Monocytes # (Manual) 0.3 Smudge Cells PRESENT Platelet Estimate SLIGHTLY DECREASED Plt Morphology Comment NORMAL RBC Morphology NORMAL Anion Gap 12 Estim Creat Clear Calc 137.7 Estimated GFR > 60 Random Glucose 88 Lactic Acid 1.1 Calcium 9.8 D Magnesium 2.3 Total Bilirubin 1.6 H AST 447 H ALT 585 H Alkaline Phosphatase 252 H Total Protein 7.7 Albumin 4.1 Lipase 58 Acetaminophen < 3 Ethyl Alcohol < 10 Influenza Type A (PCR) NEGATIVE Influenza Type B (PCR) NEGATIVE RSV RNA Qual (PCR) NEGATIVE SARS-CoV-2 RNA (RT-PCR) NEGATIVE S. pyogenes GrpA SIOBHAN Negative Imaging Radiologist's Impressions: Impressions Abdomen Ultrasound 11/03/23 23:25 IMPRESSION: No acute sonographic abnormalities to explain the patient's symptoms. Chest X-Ray 11/03/23 23:59 IMPRESSION: Unremarkable examination. Abdomen/Pelvis CT 11/04/23 00:15 IMPRESSION: 1. Splenomegaly. 2. Fluid-filled mid small bowel, which may be related to a mild enteritis. Small amount of free fluid within the pelvis. 3. No evidence of renal calculi or hydronephrosis. Fleischner guidelines were followed. Assessment and Plan (1) Bandemia: Status: Acute (2) Transaminitis: Status: Acute (3) Nausea & vomiting: Qualifiers: Vomiting type: bilious vomiting Qualified Code(s): R11.14 - Bilious vomiting Status: Acute Plan This is a 23-year-old male with no pertinent past medical history and not on prescription medications who presents to the emergency department for evaluation of nausea and vomiting. #. Intractable nausea and vomiting with sepsis: Patient meets sepsis criteria due to bandemia. Will admit patient and initiate empiric IV ceftriaxone and metronidazole. Imaging with splenomegaly. Tick panel pending. Ordered viral respiratory panel. Resuscitated with IV crystalloids. Lactic acid and blood culture obtained. GI panel pending #. Elevated transaminases: Trending up from 7/13. Consulted Gastroenterology, appreciate assistance. Hepatitis panel pending DVT prophylaxis: Lovenox Full code Admit as inpatient and will require two night minimum hospital stay for IV antibiotics (as above), which is not possible in a lesser acute setting. Quality Stroke Does the patient have a stroke diagnosis?: No VTE Prior VTE?: No VTE Risk Level:: Medical - moderate - high VTE Device Contraindication: Treatment Not Indicated VTE Drug Contraindication: N/A - Med Ordered
[2023-11-04] MEDS: cefTRIAXone sodium 1 GM in 0.9 % Sodium Chloride 50 ML IV (03:06)
[2023-11-04] MEDS: metroNIDAZOLE/NS 500 MG/100 ML PIGGYBACK 100 MG IV ×2 (03:36→10:17)
[2023-11-04 04:32] LABS: HBc Num1 0.19 S/CO (0.00-0.79); HBsAGNum1 0.22 S/CO (0.00-0.99); Hepatitis A Antibody IgM 0.15 Index (0-0.79); Hepatitis B Core Antibody Nonreactive (Nonreactive); Hepatitis B Surface Antigen Negative (Negative); ~HepC Num1 0.14 S/CO (0.00-0.79); ~Hepatitis A Antibody IgM Nonreactive (Nonreactive); ~Hepatitis B Surface Antibody NONREACTIVE (Nonreactive); ~Hepatitis C Antibody Nonreactive (Nonreactive)
[2023-11-04 06:31] LABS: Basophils Absolute Auto 0.1 X10*3/uL (0.0-0.2); Basophils Percent Auto 0.8 % (0-2); Eosinophils Percent Auto 0.3 % (0-4); Hemoglobin 12.6 g/dl (14.0-18.0); Imm Gran Abs Auto 0.01 X10*3/uL (0.00-0.03); Imm Gran Pct Auto 0.2 % (0.0-0.4); Lymphocytes Absolute Auto 4.3 X10*3/uL (1.2-4.9); Lymphocytes Percent Auto 71.4 % (20-40); MANUAL DIFF FLAG SCAN; Mean Corpuscular HGB Conc 34.1 g/dl (31.0-36.0); Mean Corpuscular Hemoglobin 28.7 pg (27.0-33.0); Mean Corpuscular Volume 84.3 fL (80.0-98.0); Mean Platelet Volume 10.5 fL (9.4-12.4); Monocytes Absolute Auto 0.4 X10*3/uL (0.1-1.2); Monocytes Percent Auto 6.4 % (2-11); Neutrophils Absolute Auto 1.2 x10*3/uL (2.0-8.3); Neutrophils Percent Auto 20.9 % (45-73); Platelet Count 126 X10*3/uL (160-400); Red Blood Count 4.39 X10*6/uL (4.60-5.80); Red Cell Distribution Width 12.8 % (11.0-16.0); SCAN SMEAR FLAG 1
[2023-11-04 07:01] LABS: Alanine Aminotransferase 525 U/L (0-40); Albumin Level 3.6 g/dL (3.5-5.0); Alkaline Phosphatase 215 U/L (39-117); Anion Gap 14 (12-20); Aspartate Amino Transferase 368 U/L (5-37); Bilirubin Total 1.1 mg/dL (0.0-1.0); Blood Urea Nitrogen 10 mg/dL (9-16); Calcium 8.6 mg/dL (8.4-10.2); Carbon Dioxide 24 mmol/L (22-29); Chloride 104 mmol/L (96-108); Estimated Glomerular Filt Rate > 60; Glucose Random 92 mg/dL (60-115); Potassium 3.9 mmol/L (3.3-5.1); Sodium 138 mmol/L (135-145); Total Protein 6.8 g/dL (6.5-8.0)
[2023-11-04] MEDS: 0.9 % Sodium Chloride Flush 3 ML SYRINGE IVFLUSH ×2 (07:20→21:24)
[2023-11-04] MEDS: Lactated Ringers 1,000 ML 125 ML IVCONT ×3 (07:20→21:24)
[2023-11-04 07:31] LABS: SLIDE REVIEW VERIFIED
--- NOTE | 2023-11-04 08:20 | PHA.MEDREC ---
Pharmacy Consult ? Medication Reconciliation Pharmacy has completed the medication reconciliation. Confirmed medications with patient with help from [employer] i police sergeant. He states he is only taking the Doxycyline 100mg cap 1 BID which he started Friday11/01/23 when he was discharged.
[2023-11-04] MEDS: Enoxaparin Sodium 40 MG/0.4 ML SYRINGE SUBCUT (08:50)
--- NOTE | 2023-11-04 09:24 | MHC.CM.PN ---
PATIENT IS MALIAN SPEAKING. CM ASSESSMENT COMPLETED W/ FIBER TECHNICIAN ASSISTANCE. PATIENT LIVES IN HOME W/ FAMILY. FUNCTIONALLY INDEPENDENT. PCP @ [facility] HCP COMPLETED. PATIENT NAMED [facility] Shalonda LÓPEZ [phone]. DP: GOAL IS HOME SELF CARE. DO NOT ANTICIPATE THE NEED FOR SERVICES. CM WILL CONTINUE TO FOLLOW.
--- NOTE | 2023-11-04 09:52 | PM.GICN ---
History of Present Illness Data of Consult Service Date: 11/04/23 Requesting physician: William Tolliver Primary Care Provider: Unknown Physician HPI Reason for consult: abn LFT 23-year-old male with no pertinent past medical history and not on prescription medications who I am seeing for nausea and vomiting and abn LFT Patient had 4 d of nausea and non bloody vomiting with non radiating epigastric pain, no relieving factors, worse wtih food and poor appetite. He also noted fever and sweats with body aches. . No IV drug use. Denies heavy alcohol use.No hiking in no concern for tick bites. No sick contacts. Not been taking tylenol or any recent meds He was seen in the ER on 10/31 and discharged home on p.o. doxycycline. LABS: LFT on admission -Bili 1.6, AST: 440, ALT:585, alk- 252 neg acetaminophen level Imaging: US- nml liver CT: splenomegaly, possible enteritis Review of Systems Review of Systems: Constitutional : No Weight loss, + Fever, + Chills ENT/Mouth : No sore throat, No Rhinorrhea Eyes: No Swelling, No Redness Cardiovascular : No Chest Pain, No SOB, No Edema Respiratory : No Cough, No Sputum, No Wheezing Gastrointestinal : see HPI Genitourinary : NO Dysuria, No Urinary Frequency, No Hematuria, No Urgency Musculoskeletal : No joint pain, + Myalgias, No Joint Swelling Skin : No Skin Lesions, No rash Neuro : No Weakness, No Numbness, No Dizziness, No Headache Psych : No Anxiety/Panic, No Depression Heme/Lymph: No Bruising, No Lymphadenopathy Endocrine : No Polyuria, No Polydipsia All other systems reviewed and are negative. [facility] Past Medical History Medical History No pertinent past medical history Family History Pertinent family history: no Fh of liver disease Social History Social History Household Members: Family Housing: Apartment Do you presently have visiting nurse or other home services: No Alcohol intake: never Patient Tobacco Use Status: Never used Tobacco service: No Meds Allergies Allergy/AdvReac Type Severity Reaction Status Date / Time No Known Allergies Allergy Verified 11/03/23 20:12 Active Medications: Current Medications Acetaminophen (Acetaminophen 325 Mg Tablet) 650 mg PO Q6H PRN PRN Reason: Pain, Mild (Pain Scale 1-3), fever or headache Calcium Carbonate (Calcium Carbonate 750 Mg Tab.Chew) 750 mg PO Q4H PRN PRN Reason: Heartburn Enoxaparin Sodium (Enoxaparin Sodium 40 Mg/0.4 Ml Syringe) 40 mg SUBCUT Q24H [facility] Last Admin: 11/04/23 08:50 Dose: 40 mg Ceftriaxone Sodium 1 gm/ (Sodium Chloride) 50 mls @ 100 mls/hr IV Q24H [facility] Last Infusion: 11/04/23 03:36 Dose: Infused Metronidazole (Flagyl) 500 mg in 100 mls @ 100 mls/hr IV Q8H [facility] Last Infusion: 11/04/23 04:36 Dose: Infused Lactated Ringer's (Lr) 1,000 mls @ 125 mls/hr IVCONT .Q8H [facility] Last Admin: 11/04/23 07:20 Dose: 125 mls/hr Magnesium Hydroxide (Milk Of Magnesia 30 Ml Oral.Susp) 30 ml PO DAILY PRN PRN Reason: Constipation Melatonin (Melatonin 3 Mg Tablet) 6 mg PO BEDTIME PRN PRN Reason: Insomnia Ondansetron HCl (Ondansetron Hcl 4 Mg/2 Ml Vial) 4 mg IVPUSH Q8H PRN PRN Reason: Nausea and Vomiting Sodium Chloride (0.9 % Sodium Chloride Flush 3 Ml Syringe) 3 ml IVFLUSH QSHIFT [facility] Last Admin: 11/04/23 07:20 Dose: 3 ml Physical Exam Vital Signs: Vital Signs: Last Vital Signs Temp 99.9 F 11/04/23 07:55 Pulse 96 11/04/23 07:55 Resp 12 11/04/23 07:55 BP 117/70 11/04/23 07:55 Pulse Ox 97 11/04/23 07:55 O2 Del Method Room Air 11/04/23 07:55 BMI result Body Mass Index 29.7 Results Labs 11/04/23 05:47 11/04/23 05:47 Labs: Short CBC 11/03/23 11/04/23 Range/Units 20:47 05:47 WBC 5.4 6.0 (4.8-10.8) X10*3/uL Hgb 14.0 12.6 L (14.0-18.0) g/dl Hct 40.4 L 37.0 L (42.0-52.0) % Plt Count 137 L 126 L (160-400) X10*3/uL BMP 11/03/23 11/04/23 20:47 05:47 Sodium 138 138 Potassium 4.2 3.9 Chloride 105 104 Carbon Dioxide 25 24 BUN 10 10 Creatinine 1.01 1.01 Calcium 9.8 D 8.6 D Liver Function 11/03/23 11/04/23 Range/Units 20:47 05:47 Total Bilirubin 1.6 H 1.1 H (0.0-1.0) mg/dL AST 447 H 368 H (5-37) U/L ALT 585 H 525 H (0-40) U/L Alkaline Phosphatase 252 H 215 H (39-117) U/L Albumin 4.1 3.6 (3.5-5.0) g/dL Imaging CT scan - abdomen: Attestation: I personally reviewed and interpreted this imaging study as follows: (splenomegaly, air fluid levels ) Assessment and Plan (1) Transaminitis: Status: Acute Plan 1/ Abdominal pain, nausea with abn LFT, splenomegaly on imaging, feeling much better today, most likely EBV, could be another viral agent as well, Hep A,B,C neg--no clinical evidence of acute liver failure PLAN: 1/ tylenol as needed 2/ check INR 3/ check EBV serologies, 4/ trend LFt, if getting worse and INR rising or clinical signs of encephalopathy then transfer to liver center 5/ Avoid contact sports on d/c for 6 weeks Procedures Date of Service Date of Service: 11/04/23
--- NOTE | 2023-11-04 14:53 | PM.EVENT ---
Event Note Date of Service: 11/04/23 Event Note: Chart reviewed. Patient examined. Agree with H&P and plan as outlined. Appreciate GI input. Will DC antibiotics; add coags to labs and advance diet slowly. Time Spent With Patient Time: Total time managing care of this patient today ____ minutes.
[2023-11-04] MEDS: Acetaminophen 325 MG TABLET 650 MG PO (16:24)
[2023-11-04] MEDS: ondansetron HCL 4 MG/2 ML VIAL IVPUSH (16:42)
[2023-11-05] MEDS: Metoclopramide HCl 10 MG/2 ML VIAL 5 MG IVPUSH (00:25)
[2023-11-05 03:36] VITALS: BP 127/79; PULSE 100; RESP 18; TEMP 37.8; O2SAT 97
[2023-11-05] MEDS: Lactated Ringers 1,000 ML 125 ML IVCONT ×2 (04:49→12:00)
[2023-11-05 06:46] LABS: Basophils Absolute Auto 0.1 X10*3/uL (0.0-0.2); Basophils Percent Auto 1.1 % (0-2); Eosinophils Percent Auto 0.2 % (0-4); Hematocrit 36.2 % (42.0-52.0); Hemoglobin 12.5 g/dl (14.0-18.0); Imm Gran Abs Auto 0.01 X10*3/uL (0.00-0.03); Imm Gran Pct Auto 0.2 % (0.0-0.4); Lymphocytes Absolute Auto 4.3 X10*3/uL (1.2-4.9); Lymphocytes Percent Auto 77.2 % (20-40); MANUAL DIFF FLAG SCAN; Mean Corpuscular HGB Conc 34.5 g/dl (31.0-36.0); Mean Corpuscular Hemoglobin 29.1 pg (27.0-33.0); Mean Corpuscular Volume 84.4 fL (80.0-98.0); Mean Platelet Volume 10.7 fL (9.4-12.4); Monocytes Absolute Auto 0.3 X10*3/uL (0.1-1.2); Monocytes Percent Auto 4.7 % (2-11); Neutrophils Absolute Auto 0.9 x10*3/uL (2.0-8.3); Neutrophils Percent Auto 16.6 % (45-73); Platelet Count 120 X10*3/uL (160-400); Red Blood Count 4.29 X10*6/uL (4.60-5.80); Red Cell Distribution Width 12.7 % (11.0-16.0); SCAN SMEAR FLAG 1; White Blood Count 5.6 X10*3/uL (4.8-10.8)
[2023-11-05 06:59] LABS: Alanine Aminotransferase 583 U/L (0-40); Albumin Level 3.4 g/dL (3.5-5.0); Alkaline Phosphatase 236 U/L (39-117); Anion Gap 12 (12-20); Aspartate Amino Transferase 406 U/L (5-37); Bilirubin Total 1.3 mg/dL (0.0-1.0); Blood Urea Nitrogen 6 mg/dL (9-16); Calcium 8.7 mg/dL (8.4-10.2); Carbon Dioxide 24 mmol/L (22-29); Chloride 104 mmol/L (96-108); Creatinine Clr Calc Pharmacy 166.8; Estimated Glomerular Filt Rate > 60; Glucose Fasting 110 mg/dL (60-99); Potassium 4.1 mmol/L (3.3-5.1); Sodium 136 mmol/L (135-145); Total Protein 6.6 g/dL (6.5-8.0)
[2023-11-05 07:06] LABS: Prothrombin Time 12.5 SEC (11.1-13.3)
[2023-11-05 07:09] VITALS: BP 124/70; PULSE 89; RESP 18; TEMP 36.7; O2SAT 96
[2023-11-05 07:58] LABS: SLIDE REVIEW VERIFIED
[2023-11-05 11:25] LABS: Adenovirus PCR Not Detected (Not Detect.); Bordetella parapertussis PCR Not Detected (Not Detect.); Bordetella pertussis PCR Not Detected (Not Detect.); Chlamydia pneumoniae PCR Not Detected (Not Detect.); Coronavirus 229E PCR Not Detected (Not Detect.); Coronavirus HKU1 PCR Not Detected (Not Detect.); Coronavirus NL63 PCR Not Detected (Not Detect.); Coronavirus OC43 PCR Not Detected (Not Detect.); Human metapneumovirus PCR Not Detected (Not Detect.); Influenza A PCR Not Detected (Not Detect.); Influenza B PCR Not Detected (Not Detect.); Mycoplasma pneumoniae PCR Not Detected (Not Detect.); Parainfluenza 1 PCR Not Detected (Not Detect.); Parainfluenza 2 PCR Not Detected (Not Detect.); Parainfluenza 3 PCR Not Detected (Not Detect.); Parainfluenza 4 PCR Not Detected (Not Detect.); RSV PCR Not Detected (Not Detect.); Rhino/Enterovirus PCR Not Detected (Not Detect.)
[2023-11-05 11:42] LABS: SARS-CoV-2 PCR Not Detected (Not Detect.)
--- NOTE | 2023-11-05 12:31 | P.DS_ITS ---
DS: Providers Provider Date of Service: 11/05/23 Date of admission: 11/04/23 02:09 Date of discharge: 11/05/23 Primary care physician: Aggie Hutchinson Consults: 11/04/23 09:32 Consult to Gastroenterology Routine Consulting Provider: Elmer Ferrell Reason for consultation: enteritis Has provider been notified: No DS: Diagnosis Discharge Diagnosis (1) Transaminitis: Status: Acute DS: Summary Hospital Course Hospital Course: 23-year-old male with no pertinent past medical history and not on prescription medications who presents to the emergency department for evaluation of nausea and vomiting. Patient states symptoms started 4 days ago. He was seen in the ER on 10/31 and discharged home on p.o. doxycycline. Patient states he is unable to tolerate p.o. intake due to nausea and vomiting. Also had 1 episode of loose stools on the day of presentation. Patient is complaining of epigastric discomfort, intermittent, nonradiating. Multiple episodes of vomiting throughout the day and is nonbloody. States he has not left his home and has no history of travel. No hiking in no concern for tick bites. No sick contacts. Also has been having chills with body aches and generalized weakness. No IV drug use. Denies heavy alcohol use. No history of similar symptoms in the past. Is currently not on any prescription medications. In the emergency department, 14% bandemia present and liver enzymes found to be elevated. CT imaging of the abdomen with splenomegaly Hospital Course Admitted to the general medical floor; seen in consultation by GI. Given CT scan transaminitis GI felt this was related EBV. Patient's diet was advanced and he tolerated well. He has been advised to refrain from contact sports for 6 weeks follow-up with his PCP for follow-up lab work. At this point in time he is medically acceptable for discharge Time Attestation Discharge Coordination Time (in mins): 35 Quality: Safe Use of Opioids Does Pt have an Active Cancer Diagnosis on the Problem List?: No Quality: Stroke Does the patient have a stroke diagnosis?: No Physical Exam Vital Signs: Vital Signs: Last Vital Signs Temp 98.0 F 11/05/23 07:09 Pulse 89 11/05/23 07:09 Resp 18 11/05/23 07:09 BP 124/70 11/05/23 07:09 Pulse Ox 96 11/05/23 07:09 O2 Del Method Room Air 11/05/23 07:09 BMI result Body Mass Index 29.7 Const: Other: No acute distress Resp: Other: Clear to auscultation bilaterally no rales rhonchi or wheezes Cardio: Other: No S4; positive S1-S2; no S3 murmurs rubs or gallops GI: Other: Soft nontender nondistended normoactive bowel sounds. No palpable spleen tip Extrem: Other: No edema bilaterally DS: Data Data Completed and Pending Labs on day of discharge: Laboratory Results - last 24 hr 11/04/23 11/05/23 16:00 05:48 WBC 5.6 RBC 4.29 L Hgb 12.5 L Hct 36.2 L MCV 84.4 MCH 29.1 MCHC 34.5 RDW 12.7 Plt Count 120 L MPV 10.7 Immature Gran % (Auto) 0.2 Neut % (Auto) 16.6 L Lymph % (Auto) 77.2 H [place] % (Auto) 4.7 Eos % (Auto) 0.2 Baso % (Auto) 1.1 Lymph # (Auto) 4.3 [place] # (Auto) 0.3 Eos # (Auto) 0.0 Baso # (Auto) 0.1 Abs Immat Gran (auto) 0.01 Absolute Neuts (auto) 0.9 L Absolute Nucleated RBC 0.000 Nucleated RBC % (auto) 0.0 Smear Tech's Comments VERIFIED PT 12.5 INR 1.0 Sodium 136 Potassium 4.1 Chloride 104 Carbon Dioxide 24 Anion Gap 12 BUN 6 L Creatinine 0.83 Estim Creat Clear Calc 166.8 Estimated GFR > 60 Fasting Glucose 110 H Calcium 8.7 Total Bilirubin 1.3 H AST 406 H ALT 583 H Alkaline Phosphatase 236 H Total Protein 6.6 Albumin 3.4 L Respiratory Panel [place] See Note Adenovirus (Rapid PCR) Not Detected B.pert (TEM-PCR) Not Detected B.parapertussis DNA PCR Not Detected C. pneumoniae DNA (PCR) Not Detected Coronavirus OC43 (PCR) Not Detected Coronavirus HKU1 (PCR) Not Detected Coronavirus 229E (PCR) Not Detected Coronavirus NL63 (PCR) Not Detected Human Metapneumovir PCR Not Detected Influenza A (RT-PCR) Not Detected Influenza B (RT-PCR) Not Detected M. pneumoniae (PCR) Not Detected Parainfluenza 1 (PCR) Not Detected Parainfluenza 2 (PCR) Not Detected Parainfluenza 3 (PCR) Not Detected Parainfluenza 4 (PCR) Not Detected RSV (PCR) Not Detected Entero/Rhino (PCR) Not Detected SARS-CoV-2 RNA (RT-PCR) Not Detected Preliminary micro results at discharge 11/03/23 23:06 Blood Culture - Preliminary Blood - Venous No growth after 24 hours. 11/03/23 23:06 Blood Culture - Preliminary Blood - Venous No growth after 24 hours. Discharge Plan Discharge Anticipated Discharge Date/Time: 11/05/23 12:28 Patient Disposition: Home, Self-Care Discharge Diagnosis: Transaminitis likely secondary to EBV Referrals: Aggie Hutchinson [Other] - 1 Week Discharge Medications: Discontinued doxycycline hyclate 100 mg capsule 100 mg PO BID Qty: 14 0RF Discharge Orders: Discharge Order (Routine); Ordered 11/05/23 Ordered By: William Tolliver Diet: Advance to usual diet Activity on Discharge: As tolerated Stand Alone Forms: Patient Portal Discharge page Print Language: Czech Care Plan Goals: No contact sports for 6 weeks Health Concerns: Follow-up with your PCP. He will need to follow your liver enzymes Plan of Treatment: Continue your routine at home again avoiding any contact sports or issues Assessment: See discharge summary
--- NOTE | 2023-11-05 12:38 | MHC.CM.PN ---
Patient medically cleared for dc home self care via private transport.
[2023-11-05 22:23] LABS: EBV-NA IgG Index <18.00 U/mL; EBV-VCA IgM Ab >160.00 U/mL
[2023-11-08 12:03] LABS: EBV DNA PCR Detected (Not Detected); EBV Source Whole Blood
== END 2023-11-05 15:02 | disposition home or self-care (01) | DRG 723 ==
LOC: HO.ED 11-04 00:35 → HO.EDOVER 11-04 02:13 → HO.S3 11-04 03:05
PROVIDERS: Internal Medicine Gastroenterology; Physician Assistant Medical; Admitting Provider Student in an Organized Health Care Education/Training Program; Emergency Provider Emergency Medicine; PCP Internal Medicine; Visit Provider Hospitalist
DX: B27.00 Gammaherpesviral mononucleosis without complication (principal)
CPT/HCPCS: 0241U; 36415; 71045; 74177; 76705; 80053; 80143; 80307; 83605; 83690; 83735; 85007; 85025; 85027; 85610; 86664; 86665; 86704; 86706; 86709; 86803; 87040; 87340; 87633; 87651; 87798; 99285; J0696; J1200; J1650; J1836; J2270; J2405; J2543; J2765; J7120; Q9967

== ENCOUNTER → 2023-11-04 02:09 | Outpatient (BNV) | payer OTHER, SELFPAY | PROVIDERS: Admitting Provider Student in an Organized Health Care Education/Training Program; Emergency Provider Emergency Medicine; Visit Provider Internal Medicine Gastroenterology | DX: R74.01 Elevation of levels of liver transaminase levels (principal) | CPT/HCPCS: 99222 ==

== ENCOUNTER → 2023-11-04 02:09 | Outpatient (BNV) | payer OTHER, SELFPAY | PROVIDERS: Admitting Provider Student in an Organized Health Care Education/Training Program; Emergency Provider Emergency Medicine; Visit Provider Student in an Organized Health Care Education/Training Program | DX: D72.825 Bandemia (principal); R74.01 Elevation of levels of liver transaminase levels; R11.14 Bilious vomiting | CPT/HCPCS: 99222; 99239; 99499 ==

== ENCOUNTER 2024-08-31 17:31 | Emergency (ER) | payer OTHER, SELFPAY ==
[2024-08-31 18:24] VITALS: BP 145/80; PULSE 102; RESP 18; TEMP 36.8; O2SAT 97; BMI 31.2
--- NOTE | 2024-08-31 18:28 | ED.GENADULT ---
HPI - General Adult General Chief complaint: Upper Respiratory Symptoms Stated complaint: allergies/ congestion/ body pain Time Seen by Provider: 08/31/24 19:25 Source: patient Mode of arrival: ambulatory Limitations: no limitations History of Present Illness ED Provider: Dr. Knowles HPI narrative: 24 year old male PMH: chronic back pain presents emergency department complaining of knee and back pain. Patient is concerned as he works the [employer] uses body lot that he is on could be the walk when he is older he denies any falls or injuries he did has had a runny nose and similar symptoms with the son who is also here in his Related Data Previous Rx's ?Medication ?Instructions ?Recorded prednisone 20 mg tablet 60 mg (3 x 20 mg) PO DAILY Asthma 08/31/24 5 days #15 tabs Allergies Allergy/AdvReac Type Severity Reaction Status Date / Time No Known Allergies Allergy Verified 08/31/24 18:25 Review of Systems Review of Systems: Review of systems: General: Patient denies any fever chills recent illness or falls Musculoskeletal: he has low back pain no body aches or other injuries HEENT: sore throat congestiondenies headache, runny nose, ear pain Respiratory: denies shortness of breath, cough Cardiovascular: no chest pain or palpitations : denies dysuria, frequency Abdomen: no nausea vomiting denies abdominal pain Extremities: no swelling, no pain Skin: no diaphoresis Yes all other systems are reviewed and are negative PMFSH Past Medical History Medical History No pertinent past medical history Social History Social History Household Members: Family Housing: Apartment Do you presently have visiting nurse or other home services: No Alcohol intake: never Patient Tobacco Use Status: Never used Tobacco Advance Directives: No Advance Directives Information Provided: No service: No Physical Exam ED Vital Signs: Vital Signs - 24 hr 08/31/24 18:24 Temperature 98.2 F Pulse Rate 102 H Respiratory Rate 18 Blood Pressure 145/80 H Pulse Oximetry 97 Oxygen Delivery Method Room Air BMI result Body Mass Index 31.2 General: Well-appearing well-nourished in no signs of distress HEENT: Normocephalic atraumatic Neck: No signs of JVD, no masses no tenderness or lymphadenopathy Cardiovascular: Regular rate and rhythm Respiratory: Clear to auscultation bilaterally Abdomen: Soft nontender no masses Extremities: Normal pedal pulses no signs of edema Skin: Dry warm no rashes Back: No tenderness full ROM normal strength normal reflexes Course Course Course Narrative: This is a rapid medical exam performed by Yesika Huerta NP: Additional HPI, ROS, PE not included below will be deferred to primary provider. Patient is a 24-year-old male presenting in the emergency department with complaint of congestion, body aches, sore throat since this morning. and son sick with similar symptoms. Also complains of chronic low back pain for the past 2 years. Plan: Viral and strep swabs Medical Decision Making Medical Decision Making [facility] Narrative: patient have COVID flu and RSV checked looks otherwise well I think he is safe to go home I will send home with prednisone for the next few days and follow up with his doctor. Differential Diagnosis Differential Diagnoses: The differential diagnosis associated with the presentation includes patient with worsening back pain sore throat with family that sick likely acute on chronic back pain likely related to upper respiratory infection or varus Lab Data [facility] Lab Attestation statement: I reviewed the patient's lab results. Labs: Lab Results 08/31/24 Range/Units 18:34 Influenza Type A (PCR) NEGATIVE (Negative) Influenza Type B (PCR) NEGATIVE (Negative) RSV RNA Qual (PCR) NEGATIVE (Negative) SARS-CoV-2 RNA (RT-PCR) NEGATIVE (Negative) S. pyogenes GrpA SIOBHAN Negative (Negative) Discharge Plan Discharge Clinical Impression: Viral infection, Back pain Patient Disposition: Home, Self-Care Instructions: Acute Low Back Pain (ED), Viral Syndrome (ED) Additional Instructions: You were seen today in the emergency department for back pain as well as signs of upper respiratory infection including sore throat and congestion. I do think they are probably related when you are sick with a virus this can cause body aches which will make her chronic back pain worse. If you have any other concerns please return to the Prescriptions: New prednisone 20 mg tablet 60 mg PO DAILY 5 Days Qty: 15 0RF Print Language: Belarusian
[2024-08-31 18:51] LABS: IDNOW Serial# 58CA691E; Strep A Nucleic Acid Negative (Negative)
[2024-08-31 19:21] LABS: Influenza A PCR NEGATIVE (Negative); Influenza B PCR NEGATIVE (Negative); Resp Syncy Virus RNA Qual PCR NEGATIVE (Negative); SARS COV2 PCR INHOUSE NEGATIVE (Negative)
[2024-08-31] MEDS: Acetaminophen 325 MG TABLET 650 MG PO (20:27)
[2024-08-31] MEDS: predniSONE 20 MG TABLET 60 MG PO (20:27)
[2024-08-31 20:33] VITALS: BP 128/69; PULSE 100; RESP 18; TEMP 37.2; O2SAT 99
[2024-08-31 20:41] VITALS: BP 128/69; PULSE 100; RESP 18; TEMP 37.2; O2SAT 99
== END 2024-08-31 20:42 | disposition home or self-care (01) ==
PROVIDERS: Registered Nurse Emergency; Emergency Provider Student in an Organized Health Care Education/Training Program; PCP Internal Medicine
DX: B34.9 Viral infection, unspecified (principal); M54.50 Low back pain, unspecified; Z03.818 Encounter for observation for suspected exposure to other biological agents ruled out
CPT/HCPCS: 0241U; 87651; 99283; 99284

== ENCOUNTER 2024-11-17 10:18 | Emergency (ER) | payer OTHER, SELFPAY ==
[2024-11-17 10:37] VITALS: BP 115/58; PULSE 75; RESP 16; TEMP 36.2; O2SAT 97; BMI 30.7
[2024-11-17 11:05] LABS: MANUAL DIFF FLAG NO
[2024-11-17 11:11] VITALS: BP 127/71; PULSE 77; RESP 16; TEMP 36.8
--- NOTE | 2024-11-17 11:14 | PC.NURSE ---
Patient presents to ED c/o nausea and vomiting. Patient reports this started this morning. Patient reports pain just below sternum rated 1/10 non radiating. Denies SOB, fevers, sick contacts, blood in stool or vomit, recent mediation changes, surgeries, and thinners. VSS afebrile. Provider in to see patient. Plan of care on going.
[2024-11-17 11:19] LABS: Hematocrit 42.8 % (42.0-52.0); Hemoglobin 15.2 g/dl (14.0-18.0); Imm Gran Abs Auto 0.04 X10*3/uL (0.00-0.03); Imm Gran Pct Auto 0.4 % (0.0-0.4); Lymphocytes Absolute Auto 1.6 X10*3/uL (1.2-4.9); Mean Corpuscular HGB Conc 35.5 g/dl (31.0-36.0); Mean Corpuscular Hemoglobin 28.5 pg (27.0-33.0); Mean Corpuscular Volume 80.3 fL (80.0-98.0); NRBC Abs Auto 0.000 X10*3/uL (0.0-0.012); NRBC Pct Auto 0.0 /100WBC (0.0-0.2); Platelet Count 239 X10*3/uL (160-400); Red Blood Count 5.33 X10*6/uL (4.60-5.80); White Blood Count 10.2 X10*3/uL (4.8-10.8)
[2024-11-17 11:25] LABS: Alanine Aminotransferase 21 U/L (0-40); Albumin Level 4.8 g/dL (3.5-5.0); Alkaline Phosphatase 66 U/L (39-117); Anion Gap 9 (12-20); Aspartate Amino Transferase 21 U/L (5-37); Blood Urea Nitrogen 14 mg/dL (9-16); Calcium 9.1 mg/dL (8.4-10.2); Carbon Dioxide 24 mmol/L (22-29); Chloride 109 mmol/L (96-108); Creatinine Clr Calc Pharmacy 160.2; Estimated Glomerular Filt Rate > 60; Lipase 24 U/L (8-78); Potassium 4.3 mmol/L (3.3-5.1); Sodium 138 mmol/L (135-145); Total Protein 7.6 g/dL (6.5-8.0)
--- NOTE | 2024-11-17 12:06 | ED_ITS ---
HPI - Nausea/Vomiting/Diarrhea General Chief complaint: Nausea/Vomiting/Diarrhea Stated complaint: n/v/d Time Seen by Provider: 11/17/24 11:44 Source: patient Mode of arrival: ambulatory Limitations: no limitations History of Present Illness ED Provider: HPI Narrative: 24-year-old male presenting with nausea, vomiting and diarrhea x1 day, no chest pain or shortness of breath no dysuria, hematuria, no sick contacts. Related Data Previous Rx's ?Medication ?Instructions ?Recorded prednisone 20 mg tablet 60 mg (3 x 20 mg) PO DAILY A sthma 08/31/24 5 days #15 tabs dicyclomine 10 mg capsule 10 mg PO BID PRN abdominal p ain 3 11/17/24 days #6 caps ondansetron 4 mg disintegrating 4 mg PO Q8H PRN nausea and 11/17/24 tablet vomiting #4 tabs Allergies Allergy/AdvReac Type Severity Reaction Status Date / Time No Known Allergies Allergy Verified 11/17/24 10:41 Review of Systems 2 Constitutional: Constitutional: Reports as per HPI [facility] Past Medical History Medical History No pertinent past medical history Social History Social History Household Members: Family Housing: Apartment Do you presently have visiting nurse or other home services: No Alcohol intake: never Patient Tobacco Use Status: Never used Tobacco Smoked in Last 30 Days: No Use of substances other than those prescribed or required for medical reasons: No Advance Directives: No Advance Directives Information Provided: Yes service: No Physical Exam 2 Vital Signs: Vital Signs: Last Vital Signs Temp 98.3 F 11/17/24 11:11 Pulse 77 11/17/24 11:11 Resp 16 11/17/24 11:11 BP 127/71 11/17/24 11:11 Pulse Ox 97 11/17/24 10:37 O2 Del Method Room Air 11/17/24 11:11 BMI result Body Mass Index 30.7 Const: Other: * Gen: ?Overall well-appearing patient * HEENT: PERRLA, EOMI, MMM, * Neck: Supple, no LAD * CV: RRR, no obvious murmurs appreciated * Resp: ?No wheezing rales rhonchi no stridor moving air well * Abd: ?Bowel sounds are present, no tenderness no rebound no rigidity * MSK: FROM, strength 5/5 all extremities * Skin: Warm, dry, intact, * Neuro: ?Alert and oriented x3, moving upper and lower extremities symmetrically, no obvious facial asymmetry noted Medical Decision Making Medical Decision Making [facility] Narrative: Presenting with nausea vomiting diarrhea, benign abdominal exam, considerations for workup as below, did not feel further imaging is indicated, as long as he is medicated, able to take p.o. we will discharge, if blood work concerning or he is not able tolerate p.o. we will escalate care Differential Diagnosis Differential Diagnoses: The differential diagnosis associated with the presentation includes (Cholecystitis, pancreatitis, hepatitis, gastritis, cholangitis, choledocholithiasis, SBO, ACS) Admission/Observation Consideration of admission/observation: Escalation of care including admission/observation considered 2022 Emergency Medicine Coding Guide from [employer] on 11/17/2024 All calculations should be rechecked by clinician prior to use RESULT SUMMARY: 4 Estimated Level of Service Problems: Moderate (4) Risk: Moderate (4) Data: Limited (3) NARRATIVE MDM: This patient's problem complexity is Moderate as patient: has an acute illness with systemic symptoms. This patient's risk is Moderate due to: overall presentation requiring evaluation for a potentially Moderate-risk process. This patient's data complexity is Limited due to: -multiple tests ordered INPUTS: Number and Complexity ?> 6 = 4: acute illness w/systemic sx (f) Risk level ?> 3 = Moderate Tests ordered ?> 2 = 2 Tests results reviewed (excluding labs) ?> 0 = 0 Prior external notes reviewed ?> 0 = 0 Assessment requiring and independent historian ?> 0 = No Independent interpretation of tests ?> 0 = No Discussed management/test interpretation w/external professional ?> 0 = No Lab Data [facility] Lab Attestation statement: I reviewed the patient's lab results. 11/17/24 11:01 11/17/24 11:01 Labs: Lab Results 11/17/24 Range/Units 11:01 WBC 10.2 (4.8-10.8) X10*3/uL RBC 5.33 D (4.60-5.80) X10*6/uL Hgb 15.2 D (14.0-18.0) g/dl Hct 42.8 (42.0-52.0) % MCV 80.3 (80.0-98.0) fL MCH 28.5 (27.0-33.0) pg MCHC 35.5 (31.0-36.0) g/dl RDW 12.6 (11.0-16.0) % Plt Count 239 D (160-400) X10*3/uL MPV 9.9 (9.4-12.4) fL Immature Gran % (Auto) 0.4 (0.0-0.4) % Neut % (Auto) 73.3 H (45-73) % Lymph % (Auto) 15.8 L (20-40) % [place] % (Auto) 7.8 (2-11) % Eos % (Auto) 2.5 (0-4) % Baso % (Auto) 0.2 (0-2) % Lymph # (Auto) 1.6 (1.2-4.9) X10*3/uL [place] # (Auto) 0.8 (0.1-1.2) X10*3/uL Eos # (Auto) 0.3 (0.0-0.4) X10*3/uL Baso # (Auto) 0.0 (0.0-0.2) X10*3/uL Abs Immat Gran (auto) 0.04 H (0.00-0.03) X10*3/uL Absolute Neuts (auto) 7.5 (2.0-8.3) x10*3/uL Absolute Nucleated RBC 0.000 (0.0-0.012) X10*3/uL Nucleated RBC % (auto) 0.0 (0.0-0.2) /100WBC Sodium 138 (135-145) mmol/L Potassium 4.3 (3.3-5.1) mmol/L Chloride 109 H (96-108) mmol/L Carbon Dioxide 24 (22-29) mmol/L Anion Gap 9 L (12-20) BUN 14 (9-16) mg/dL Creatinine 0.87 (0.5-1.4) mg/dL Estim Creat Clear Calc 160.2 Estimated GFR > 60 Random Glucose 90 (60-115) mg/dL Calcium 9.1 (8.4-10.2) mg/dL Total Bilirubin 0.6 (0.0-1.0) mg/dL AST 21 (5-37) U/L ALT 21 (0-40) U/L Alkaline Phosphatase 66 (39-117) U/L Total Protein 7.6 (6.5-8.0) g/dL Albumin 4.8 (3.5-5.0) g/dL Lipase 24 (8-78) U/L Tests considered The following testing was considered but not selected: CT abdomen and pelvis, ultrasound gallbladder Discharge Plan Discharge Clinical Impression: Nausea and vomiting, Diarrhea of presumed infectious origin Patient Disposition: Home, Self-Care Additional Instructions: Your blood work is reassuring there is no evidence for dehydration, stay well hydrated, Zofran as needed for nausea and vomiting dicyclomine helps with the abdominal cramping, any other issues or concerns come back to the ER otherwise follow up with the PCP Prescriptions: New dicyclomine 10 mg capsule 10 mg PO BID PRN (Reason: abdominal pain) 3 Days Qty: 6 0RF ondansetron 4 mg tablet,disintegrating 4 mg PO Q8H PRN (Reason: nausea and vomiting) Qty: 4 0RF No Action prednisone 20 mg tablet 60 mg PO DAILY 5 Days Qty: 15 0RF Print Language: Sami
[2024-11-17] MEDS: PHENobarb/Hyoscy/Atropine/Scop 10 ML ELIXIR PO (12:38)
[2024-11-17 12:40] VITALS: BP 111/62; PULSE 67; RESP 14; TEMP 36.8; O2SAT 96
--- OUTSIDE RECORDS SUMMARY | 2024-11-17 12:52 | XMS_ITS | Clinical Summary ---
Author Organization [facility] [employer] [facility] ity Address [address] [place] [address] Care Team Providers Care Inbound Call Center Representative Name Role Phone Unavailable Primary Care Provider Unavailabl e Social History Tobacco Use Types Packs/Day Years Used Date Smoking Tobacco: Never Assessed Sex and Gender Information Value Date Recorded Sex Assigned at Not on file Legal Sex Male 11:38 AM EDT Gender Identity Not on file Sexual Orientation Not on file Plan of Treatment Health Maintenance Due Date Last Done Comments HPV Vaccines (1 - Male 3-dos e series) 2017 Meningococcal B Vaccine (1 o f 2 - Standard) 2018 DTaP,Tdap,and Td Vaccines (1 - Tdap) 2021 Hepatitis B Vaccines (1 of 3 - 19+ 3-dose series) 2021 COVID-19 Vaccine (1 - 2023-2 5 season) 2023 HIV Screening 01/29/2024 Hepatitis C Screening 01/29/2024 Social Influencers of Health Screening 01/29/2024 Depression Screening 04/21/2024 Influenza Vaccine (#1) 2024 HIB Vaccines Aged Out No longer eligi ble based on patient's age to complete this topic Hepatitis A Vaccines Aged Out No long er eligible based on patient's age to complete this topic IPV Vaccines Aged Out No longer eligi ble based on patient's age to complete this topic MMR Vaccines Aged Out No longer eligi ble based on patient's age to complete this topic Meningococcal ACWY Vaccine Aged Out N o longer eligible based on patient's age to complete this topic Pneumococcal Vaccine: Pediat rics (0 to 5 Years) and At-Risk Patients (6 to 49 Years) Aged Out No longer eligible b ased on patient's age to complete this topic RSV Immunization Patients Un slick 20 months Aged Out No longer eligible b ased on patient's age to complete this topic Varicella Vaccines Aged Out No longer eligible based on patient's age to complete this topic
== END 2024-11-17 12:52 | disposition home or self-care (01) ==
PROVIDERS: Emergency Provider Emergency Medicine
DX: R11.2 Nausea with vomiting, unspecified (principal); R19.7 Diarrhea, unspecified
CPT/HCPCS: 36415; 80053; 83690; 85025; 99283; 99284

== ENCOUNTER 2025-03-18 06:23 | Emergency (ER) | payer OTHER, SELFPAY ==
[2025-03-18 06:30] VITALS: BP 122/72; PULSE 99; RESP 18; TEMP 36.8; O2SAT 97; BMI 29.8
--- OUTSIDE RECORDS SUMMARY | 2025-03-18 07:24 | XMS_ITS | Clinical Summary ---
Author Organization [employer] [facility] ity Address [address] [place] [address] Care Team Providers Care Industrial Therapist Name Role Phone Unavailable Primary Care Provider [...] of 3 - 19+ 3-dose series) 2021 HIV Screening 01/29/2024 Hepatitis C Screening 01/29/2024 Social Influencers of Health Screening 01/29/2024 Depression Screening 04/21/2024 COVID-19 Vaccine (1 - 2024-2 6 season) 2024 Influenza Vaccine (#1) 2024 RSV Immunization Adult Patie nts (1 - 1-dose 75+ series) 2077 HIB Vaccines Aged Out No longer eligi [...]
--- NOTE | 2025-03-18 07:51 | ED.URI ---
HPI - URI/Sore Throat General Chief Complaint: Upper Respiratory Symptoms Stated Complaint: resp symptoms Time Seen by Provider: 03/18/25 07:06 Source: patient and certified pharmacy technician Mode of arrival: ambulatory Limitations: language barrier History of Present Illness ED Provider: HPI Narrative: 24-year-old otherwise healthy here with who also has similar symptoms, reported cough body discomfort, nasal congestion for the past 4 days, subjective fevers, sick contact at work. No nausea or vomiting or diarrhea. Related Data Previous Rx's ?Medication ?Instructions ?Recorded prednisone 20 mg tablet 60 mg (3 x 20 mg) PO DAILY Asthma 08/31/24 5 days #15 tabs dicyclomine 10 mg capsule 10 mg PO BID PRN abdominal pain 3 11/17/24 days #6 caps ondansetron 4 mg disintegrating 4 mg PO Q8H PRN nausea and 11/17/24 tablet vomiting #4 tabs acetaminophen 500 mg capsule 1,000 mg (2 x 500 mg) PO Q6H PRN 03/18/25 fever or pain 5 days #20 caps benzocaine 15 mg-menthol 2.6 mg 1 maryam mucous membrane Q2-4H PRN 03/18/25 lozenges (Cepacol Sore Throat sore throat #16 ea (benzocaine-menthol)) Allergies Allergy/AdvReac Type Severity Reaction Status Date / Time No Known Allergies Allergy Verified 03/18/25 06:32 Review of Systems Constitutional: Constitutional: Reports as per [facility] Past Medical History Medical History No pertinent past medical history Social History Social History Household Members: Family Housing: Apartment Do you presently have visiting nurse or other home services: No Alcohol intake: never Patient Tobacco Use Status: Never used Tobacco Advance Directives: No Advance Directives Information Provided: No service: No Physical Exam Exam: Exam: Well-appearing, ambulating in the room, speaking full sentences, No audible stridor or wheezing Oropharyngeal exam uvula midline, slight posterior pharynx erythema, no tonsillar exudates Alert and oriented x4 Vital Signs: Vital Signs: Last Vital Signs Temp 98.2 F 03/18/25 06:30 Pulse 99 03/18/25 06:30 Resp 18 03/18/25 06:30 BP 122/72 03/18/25 06:30 Pulse Ox 97 03/18/25 06:30 O2 Del Method Room Air 03/18/25 06:30 BMI result Body Mass Index 29.8 Medical Decision Making Medical Decision Making [facility] Narrative: 7:55 AM 03/18/2025 (Dr. Francisco Goodwin): Well-appearing patient with a any evidence of deep space infection of the oropharynx, or pharyngitis, no significant symptoms to suspect underlying pneumonia did not feel further imaging such as chest x-ray is indicated, throat exam is consistent with viral pharyngitis Differential Diagnosis Differential Diagnoses: The differential diagnosis associated with the presentation includes (See above) Discharge Plan Discharge Clinical Impression: Viral infection Instructions: Viral Syndrome (ED) Additional Instructions: Viral swabs negative, Cepacol as needed for sore throat, you can take Tylenol as needed for body aches, work note provided for today, follow up with the PCP any other issues concerns come back to the ER Prescriptions: New acetaminophen 500 mg capsule 1,000 mg PO Q6H PRN (Reason: fever or pain) 5 Days Qty: 20 0RF Cepacol Sore Throat (susanne-men) 15-2.6 mg lozenge 1 maryam mucous membrane Q2-4H PRN (Reason: sore throat) Qty: 16 0RF No Action prednisone 20 mg tablet 60 mg PO DAILY 5 Days Qty: 15 0RF dicyclomine 10 mg capsule 10 mg PO BID PRN (Reason: abdominal pain) 3 Days Qty: 6 0RF ondansetron 4 mg tablet,disintegrating 4 mg PO Q8H PRN (Reason: nausea and vomiting) Qty: 4 0RF Stand Alone Forms: Work/School Release Print Language: Faroese
[2025-03-18 08:06] LABS: Resp Syncy Virus RNA Qual PCR NEGATIVE (Negative); SARS COV2 PCR INHOUSE NEGATIVE (Negative)
[2025-03-18 08:25] VITALS: BP 110/64; PULSE 86; RESP 18; TEMP 36.6; O2SAT 99
[2025-03-18 08:27] VITALS: BP 110/64; PULSE 86; RESP 18; TEMP 36.6; O2SAT 99
== END 2025-03-18 08:29 | disposition home or self-care (01) ==
PROVIDERS: Emergency Medicine; Emergency Provider Emergency Medicine; PCP Family Medicine
DX: B34.9 Viral infection, unspecified (principal); R05.9 Cough, unspecified; M79.10 Myalgia, unspecified site; R09.81 Nasal congestion; R50.9 Fever, unspecified; Z03.818 Encounter for observation for suspected exposure to other biological agents ruled out
CPT/HCPCS: 87637; 99283; 99284